=== PATIENT | female | born 1965 | race Caucasian/White ===

== ENCOUNTER 2017-10-07 00:16 | Emergency (ER) | payer MEDICAID ==
--- NOTE | 2017-10-07 00:34 | EDM.PDOC ---
ED HPI GENERAL MEDICAL PROBLEM - General Chief Complaint: Lower Extremity Injury/Pain Stated Complaint: PAIN IN LEGS AND FEET [id number] Time Seen by Provider: 10/07/17 00:30 Source of Information: Reports: Patient, Family - History of Present Illness INITIAL COMMENTS - FREE TEXT/NARRATIVE: ED with c/o lower leg swelling and foot pain this shahriar. Patient hx of liver failure, hospitalized in [facility] and pericentesis done. Has had appointments yesterday and today in [place]. reports more walking and activity than usual. No abdominal pain or difficulty breathing. Has had edema in past, worse tonight.. Rx written today for Lasix bur Rx not filled. Spouse stated that had been on Lasix while in hospital but none on discharge. Lower Leg Pain Score (Numeric/FACES): 0 - Related Data Allergies Allergy/AdvReac Type Severity Reaction Status Date / Time No Known Allergies Allergy Verified 10/07/17 01:29 Home Meds: Home Meds Omeprazole Magnesium [Prilosec Otc] 20 mg PO DAILY 10/07/17 [History] Propranolol HCl [Propranolol] 20 mg PO BID 10/07/17 [History] Spironolactone [Aldactone] 150 mg PO DAILY 10/07/17 [History] buPROPion HCl [Wellbutrin SR] 75 mg PO DAILY 10/07/17 [History] Review of Systems - Review of Systems Review Of Systems: See Below Constitutional: Reports: Fever Eyes: Reports: No Symptoms Ears: Reports: No Symptoms Nose: Reports: No Symptoms Mouth/Throat: Reports: No Symptoms Respiratory: Reports: No Symptoms Cardiovascular: Reports: No Symptoms GI/Abdominal: Reports: No Symptoms Genitourinary: Reports: No Symptoms Musculoskeletal: Reports: Leg Pain, Foot Pain Skin: Reports: Jaundice Neurological: Reports: Confusion (worse when tired) ED EXAM, GENERAL - Physical Exam Exam: See Below Exam Limited By: No Limitations General Appearance: Alert, No Apparent Distress, Obese Eye Exam: Bilateral Eye: EOMI, PERRL (sceral jaundice) Ears: Normal External Exam, Normal Canal, Normal TMs Nose: Normal Inspection Throat/Mouth: Normal Inspection Head: Atraumatic, Normocephalic Neck: Normal Inspection Respiratory/Chest: No Respiratory Distress, Lungs Clear, Normal Breath Sounds Cardiovascular: Normal Peripheral Pulses, Regular Rate, Rhythm, Other (3+edema below knees) Peripheral Pulses: 1+: Dorsalis Pedis (L), Dorsalis Pedis (R) GI/Abdominal: Normal Bowel Sounds, Soft, Non-Tender Rectal (Female) Exam: Other (incontinent lasrge amount green stool) Extremities: Normal Inspection Neurological: Alert, Oriented, Inattentive, Slow to Respond Psychiatric: Flat Affect Skin Exam: Warm, Dry, Jaundice Course - Vital Signs Last Recorded V/S: Last Vital Signs Temp 97.2 F 10/07/17 01:35 Pulse 57 L 10/07/17 01:35 Resp 20 10/07/17 01:35 BP 119/73 10/07/17 01:35 Pulse Ox 100 10/07/17 01:35 - Orders/Labs/Meds Orders: Active Orders 24 hr Category Date Time Status UA W/MICROSCOPIC [URIN] Stat Lab 10/07/17 00:59 Ordered Labs: Laboratory Tests 10/07/17 10/07/17 10/07/17 Range/Units 00:50 00:50 00:50 WBC 6.4 (5.0-10.0) 10^3/uL RBC 3.10 L (4.2-5.4) 10^6/uL Hgb 9.0 L (12.0-16.0) g/dL Hct 26.7 L (37.0-47.0) % MCV 86.1 (80-100) fL MCH 29.0 (27.0-34.0) pg MCHC 33.7 (33.0-35.0) g/dL Plt Count 110 L (150-450) 10^3/uL Neut % (Auto) 60.4 (42.2-75.2) % Lymph % (Auto) 25.8 (20.5-50.1) % [place] % (Auto) 11.3 H (2-8) % Eos % (Auto) 2.0 (1.0-3.0) % Baso % (Auto) 0.5 (0.0-1.0) % Sodium 137 (135-145) mmol/L Potassium 3.6 (3.6-5.0) mmol/L Chloride 108 (101-111) mmol/L Carbon Dioxide 22.0 (21.0-31.0) mmol/L Anion Gap 10.6 BUN 10 (7-18) mg/dL Creatinine 0.7 (0.6-1.3) mg/dL Est Cr Clr Drug Dosing 93.50 mL/min Estimated GFR (MDRD) > 60 BUN/Creatinine Ratio 14.28 Glucose 99 (74-105) mg/dL Calcium 8.6 (8.4-10.2) mg/dl Total Bilirubin 8.3 H (0.2-1.0) mg/dL AST 70 H (10-42) IU/L ALT 33 (10-60) IU/L Alkaline Phosphatase 104 (42-121) IU/L Ammonia 49 H (11-35) umol/L B-Natriuretic Peptide 360 H (0-100) pg/ml Total Protein 7.0 (6.7-8.2) g/dl Albumin 2.6 L (3.2-5.5) g/dl Globulin 4.4 Albumin/Globulin Ratio 0.59 Amylase 37 (28-100) U/L Urine Color (YELLOW) Urine Appearance (CLEAR) Urine pH (5.0-9.0) Ur Specific [place] (1.005-1.030) Urine Protein (NEGATIVE) Urine Glucose (UA) (NEGATIVE) Urine Ketones (NEGATIVE) Urine Occult Blood (NEGATIVE) Urine Nitrite (NEGATIVE) Urine Bilirubin (NEGATIVE) Urine Urobilinogen (0.2-1.0) mg/dL Ur Leukocyte Esterase (NEGATIVE) Urine RBC /HPF Urine WBC (0-5/HPF) /HPF Ur Epithelial Cells /HPF Urine Bacteria (0-FEW/HPF) /HPF Hyaline Casts /LPF Fine Granular Casts (0/LPF) /LPF Urine Mucus /LPF 10/07/17 Range/Units 00:59 WBC (5.0-10.0) 10^3/uL RBC (4.2-5.4) 10^6/uL Hgb (12.0-16.0) g/dL Hct (37.0-47.0) % MCV (80-100) fL MCH (27.0-34.0) pg MCHC (33.0-35.0) g/dL Plt Count (150-450) 10^3/uL Neut % (Auto) (42.2-75.2) % Lymph % (Auto) (20.5-50.1) % [place] % (Auto) (2-8) % Eos % (Auto) (1.0-3.0) % Baso % (Auto) (0.0-1.0) % Sodium (135-145) mmol/L Potassium (3.6-5.0) mmol/L Chloride (101-111) mmol/L Carbon Dioxide (21.0-31.0) mmol/L Anion Gap BUN (7-18) mg/dL Creatinine (0.6-1.3) mg/dL Est Cr Clr Drug Dosing mL/min Estimated GFR (MDRD) BUN/Creatinine Ratio Glucose (74-105) mg/dL Calcium (8.4-10.2) mg/dl Total Bilirubin (0.2-1.0) mg/dL AST (10-42) IU/L ALT (10-60) IU/L Alkaline Phosphatase (42-121) IU/L Ammonia (11-35) umol/L B-Natriuretic Peptide (0-100) pg/ml Total Protein (6.7-8.2) g/dl Albumin (3.2-5.5) g/dl Globulin Albumin/Globulin Ratio Amylase (28-100) U/L Urine Color [place] (YELLOW) Urine Appearance Slightly cloudy (CLEAR) Urine pH 5.5 (5.0-9.0) Ur Specific [place] >= 1.030 (1.005-1.030) Urine Protein 30 H (NEGATIVE) Urine Glucose (UA) Negative (NEGATIVE) Urine Ketones Trace H (NEGATIVE) Urine Occult Blood Negative (NEGATIVE) Urine Nitrite Negative (NEGATIVE) Urine Bilirubin Large H (NEGATIVE) Urine Urobilinogen >=8.0 H (0.2-1.0) mg/dL Ur Leukocyte Esterase Negative (NEGATIVE) Urine RBC 0-5 /HPF Urine WBC 0-5 (0-5/HPF) /HPF Ur Epithelial Cells Moderate H /HPF Urine Bacteria Many H (0-FEW/HPF) /HPF Hyaline Casts Few H /LPF Fine Granular Casts Few H (0/LPF) /LPF Urine Mucus Many H /LPF Meds: Medications Discontinued Medications Generic Name Dose Route Start Last Admin Trade Name Freq PRN Reason Stop Dose Admin Furosemide 40 mg 10/07/17 01:21 10/07/17 01:33 Lasix IVPUSH 10/07/17 01:22 40 mg NOW ONE Administration - Radiology Interpretation Free Text/Narrative:: Head CT: No evidence for acute transcortical infarct, acute intracranial hemorrhage or mass effect CXR Mild pulmonary vascular congestion, no pneumonia - Re-Assessments/Exams Free Text/Narrative Re-Assessment/Exam: 10/07/17 06:28 foot and leg pain resolved with elevation. Recent labs from [facility] received, No significant change . Departure - Departure Time of Disposition: 02:10 Disposition: Home, Self-Care 01 Condition: Fair Clinical Impression: Lower extremity pain, bilateral Edema Qualifiers: Edema type: unspecified Qualified Code(s): R60.9 - Edema, unspecified Chronic liver failure Qualifiers: Hepatic coma status: without hepatic coma Qualified Code(s): K72.10 - Chronic hepatic failure without coma - Discharge Information Instructions: Edema, [id number] Referrals: PCP,Not In Area [Primary Care Provider] - Forms: ED Department Discharge Additional Instructions: Elevate lower extremities Follow up on Thursday to recheck Labs potassium, Bun, creatinine urgent follow up if any difficulty breathing or chest pain - My Orders Last 24 Hours: My Active Orders 10/07/17 00:59 UA W/MICROSCOPIC [URIN] Stat - Assessment/Plan Last 24 Hours: My Active Orders 10/07/17 00:59 UA W/MICROSCOPIC [URIN] Stat
[2017-10-07 01:18] LABS: ANION GAP 10.6; CHLORIDE,CL 108 mmol/L (101-111); SODIUM,NA 137 mmol/L (135-145)
[2017-10-07] MEDS ORDERED: Furosemide 40 MG/4 ML VIAL IVPUSH ONE (01:21)
== END 2017-10-07 02:30 | disposition home or self-care (01) ==
LOC: DL.ED 00:16
DX: K72.10 Chronic hepatic failure without coma (principal); M79.661 Pain in right lower leg; M79.662 Pain in left lower leg; R60.9 Edema, unspecified; Z79.899 Other long term (current) drug therapy
CPT/HCPCS: 36415; 70450; 71045; 80053; 81001; 82140; 82150; 83880; 85025; 96374; 99285; J1940

== ENCOUNTER 2017-10-26 01:32 | Emergency (ER) | payer MEDICAID ==
--- NOTE | 2017-10-26 02:05 | EDM.PDOC ---
ED HPI GENERAL MEDICAL PROBLEM - General Chief Complaint: Flank Pain Stated Complaint: PAIN IN KIDNEY AREA [id number] Time Seen by Provider: 10/26/17 02:02 Source of Information: Reports: Patient, Family History Limitations: Reports: No Limitations - History of Present Illness INITIAL COMMENTS - FREE TEXT/NARRATIVE: onset back pain this AM not going away so came here. no appetite been nauseous with some diarrhoea with some blood did vomit once without blood. been Dx @ [place] with non alcoholic cirrhosis. give h/o PN. Bilateral Flank Pain Score (Numeric/FACES): 9 - Related Data Allergies Allergy/AdvReac Type Severity Reaction Status Date / Time No Known Allergies Allergy Verified 10/26/17 01:48 Home Meds: Home Meds Omeprazole Magnesium [Prilosec Otc] 20 mg PO DAILY 10/07/17 [History] Propranolol HCl [Propranolol] 20 mg PO BID 10/07/17 [History] Spironolactone [Aldactone] 100 mg PO DAILY 10/07/17 [History] buPROPion HCl [Wellbutrin SR] 75 mg PO DAILY 10/07/17 [History] Ergocalciferol (Vitamin D2) [Vitamin D2] 50,000 unit PO ASDIRECTED 10/26/17 [ History] Furosemide 40 mg PO DAILY 10/26/17 [History] Levothyroxine [Synthroid] 50 mcg PO ACBREAKFAST 10/26/17 [History] Ursodiol 500 mg PO TID 10/26/17 [History] Past Medical History Cardiovascular History: Reports: Other (See Below) Other Cardiovascular History: DVT's in her legs. Gastrointestinal History: Reports: Cirrhosis, Jaundice, Other (See Below) Other Gastrointestinal History: PBC [employer] History: Reports: Psychiatric History: Reports: Anxiety, Depression Endocrine/Metabolic History: Reports: Obesity/BMI 30+ Hematologic History: Reports: Anemia, Blood Transfusion(s) Dermatologic History: Reports: Psoriasis - Infectious Disease History Infectious Disease History: Reports: Chicken Pox - Past Surgical History GI Surgical History: Reports: Bariatric Procedure, Cholecystectomy, Colonoscopy , EGD, Other (See Below) Other GI Surgeries/Procedures: Has had gastric bypass Social & Family History - Family History Family Medical History: Noncontributory - Tobacco Use Smoking Status *Q: Never Smoker Second Hand Smoke Exposure: No - Caffeine Use Caffeine Use: Reports: None - Alcohol Use Days Per Week of Alcohol Use: 5 Number of Drinks Per Day: 5 Total Drinks Per Week: 25 - Recreational Drug Use Recreational Drug Use: No ED ROS GENERAL - Review of Systems Review Of Systems: ROS reveals no pertinent complaints other than HPI. ED EXAM, RENAL/ - Physical Exam Exam: See Below Exam Limited By: No Limitations General Appearance: Alert, WD/WN, Mild Distress, Other (discomfort) Ears: Hearing Grossly Normal Throat/Mouth: Normal Voice, No Airway Compromise Head: Atraumatic Neck: Non-Tender, Full Range of Motion Respiratory/Chest: No Respiratory Distress Cardiovascular: Regular Rate, Rhythm GI/Abdominal: Soft, Non-Tender Neurological: Alert, Oriented, Normal Cognition, No Motor/Sensory Deficits Psychiatric: Tearful Skin Exam: Warm, Dry, Normal Color Course - Vital Signs Last Recorded V/S: Last Vital Signs Temp 37.8 C 10/26/17 03:39 Pulse 87 10/26/17 03:39 Resp 18 10/26/17 03:39 BP 103/51 L 10/26/17 03:39 Pulse Ox 93 L 10/26/17 03:39 - Orders/Labs/Meds Labs: Laboratory Tests 10/26/17 10/26/17 10/26/17 Range/Units 02:05 02:05 02:05 WBC 12.7 H (5.0-10.0) 10^3/uL RBC 3.08 L (4.2-5.4) 10^6/uL Hgb 9.3 L (12.0-16.0) g/dL Hct 27.8 L (37.0-47.0) % MCV 90.3 D (80-100) fL MCH 30.2 (27.0-34.0) pg MCHC 33.5 (33.0-35.0) g/dL Plt Count 94 L (150-450) 10^3/uL Neut % (Auto) 79.7 H (42.2-75.2) % Lymph % (Auto) 13.2 L (20.5-50.1) % [place] % (Auto) 6.7 (2-8) % Eos % (Auto) 0.2 L (1.0-3.0) % Baso % (Auto) 0.2 (0.0-1.0) % Sodium 136 (135-145) mmol/L Potassium 3.9 (3.6-5.0) mmol/L Chloride 107 (101-111) mmol/L Carbon Dioxide 24.0 (21.0-31.0) mmol/L Anion Gap 8.9 BUN 6 L (7-18) mg/dL Creatinine 0.7 (0.6-1.3) mg/dL Est Cr Clr Drug Dosing 93.50 mL/min Estimated GFR (MDRD) > 60 BUN/Creatinine Ratio 8.57 Glucose 95 (74-105) mg/dL Lactic Acid 1.6 (0.5-2.2) mmol/L Calcium 8.2 L (8.4-10.2) mg/dl Total Bilirubin 9.6 H (0.2-1.0) mg/dL AST 53 H (10-42) IU/L ALT 29 (10-60) IU/L Alkaline Phosphatase 108 (42-121) IU/L Total Protein 6.5 L (6.7-8.2) g/dl Albumin 2.3 L (3.2-5.5) g/dl Globulin 4.2 Albumin/Globulin Ratio 0.55 Meds: Medications Discontinued Medications Generic Name Dose Route Start Last Admin Trade Name Freq PRN Reason Stop Dose Admin Ceftriaxone Sodium 1 gm 10/26/17 02:50 10/26/17 03:01 Rocephin IVPUSH 10/26/17 02:51 1 gm ONETIME ONE Administration Hydromorphone HCl 0.5 mg 10/26/17 03:30 10/26/17 03:34 Dilaudid IVPUSH 10/26/17 03:31 0.5 mg ONETIME ONE Administration Sodium Chloride 1,000 mls @ 150 mls/hr 10/26/17 02:15 10/26/17 02:13 Normal Saline IV 150 mls/hr ASDIRECTED KWAKU Administration Morphine Sulfate 2 mg 10/26/17 02:06 10/26/17 02:15 Morphine IVPUSH 10/26/17 02:07 2 mg ONETIME ONE Administration Ondansetron HCl 4 mg 10/26/17 02:06 10/26/17 02:13 Zofran IV 10/26/17 02:07 4 mg ONETIME ONE Administration - Re-Assessments/Exams Free Text/Narrative Re-Assessment/Exam: 10/26/17 02:51 results discussed with pt & family. pt feeling much better presently. 10/26/17 03:30 re-exam; pain starting to return, otherwise better than earlier Departure - Departure Time of Disposition: 03:50 Disposition: Home, Self-Care 01 Condition: Fair Clinical Impression: Pyelonephritis, Non-alcoholic cirrhosis - Discharge Information Instructions: Pyelonephritis, Adult, [id number] Referrals: PCP,Unobtain [Primary Care Provider] - Forms: ED Department Discharge Additional Instructions: 1) follow up with family doctor 2) recheck as needed rx given; keflex 250mg qid x 40 vicodin 5/325mg tid prn x 12 zofran 4mg ODT bid prn x 6
[2017-10-26] MEDS ORDERED: Morphine 2 MG/ML Syringe IVPUSH ONE (02:06)
[2017-10-26] MEDS ORDERED: Ondansetron 4 MG/2 ML SDV IV ONE (02:06)
[2017-10-26] MEDS ORDERED: Sodium Chloride 0.9% 1,000 ML IV SCH (02:15)
[2017-10-26 02:34] LABS: CHLORIDE,CL 107 mmol/L (101-111); SODIUM,NA 136 mmol/L (135-145)
[2017-10-26] MEDS ORDERED: cefTRIAXone 1 GM Vial IVPUSH ONE (02:50)
[2017-10-26] MEDS ORDERED: HYDROmorphone 0.5 MG/0.5 ML Syringe IVPUSH ONE (03:30)
== END 2017-10-26 03:50 | disposition home or self-care (01) ==
LOC: DL.ED 01:32
DX: N12 Tubulo-interstitial nephritis, not specified as acute or chronic (principal); K74.60 Unspecified cirrhosis of liver; F41.9 Anxiety disorder, unspecified; F32.9 Major depressive disorder, single episode, unspecified; Z79.899 Other long term (current) drug therapy
CPT/HCPCS: 36415; 80053; 83605; 85025; 87040; 87077; 87186; 96361; 96374; 96375; 99284; J0696; J1170; J2270; J2405; J7030

== ENCOUNTER 2017-12-27 07:24 | Emergency (ER) | payer MEDICAID ==
--- NOTE | 2017-12-27 07:26 | EDM.PDOC ---
ED HPI GENERAL MEDICAL PROBLEM - General Chief Complaint: Gastrointestinal Problem Stated Complaint: [id number] DEHYDRATION Time Seen by Provider: 12/27/17 07:25 Source of Information: Reports: Patient, Old Records, RN, RN Notes Reviewed History Limitations: Reports: No Limitations - History of Present Illness INITIAL COMMENTS - FREE TEXT/NARRATIVE: Pt presents to ER from home by POV with c/o feeling dehydrated. Pt reports that she began feeling nauseated, weak & fatigued with mild generalized abdominal discomfort about a week ago. She called [facility] because she has been seen there and is being evaluated for a liver transplant. The [place] doctor told her to have her [place] doctor check her out, but pt began to feel a little better so she didn't go to the clinic. Now pt reports that she is feeling worse. Pt and her have noticed that the pt has had more confusion recently. Pt states her lower extremity edema has improved a little, but she is much more jaundiced, and her urine is very dark. She admits to increasing abdominal girth similar to when she had to have paracentesis. She denies abdominal pain, vomiting, dark/black/melena stools, fevers, chills, CP, orthopnea, or cough. 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: Other Medication(s) - Related Data Allergies Allergy/AdvReac Type Severity Reaction Status Date / Time No Known Allergies Allergy Verified 10/26/17 01:48 Home Meds: Home Meds Omeprazole Magnesium [Prilosec Otc] 20 mg PO DAILY 10/07/17 [History] Propranolol HCl [Propranolol] 20 mg PO BID 10/07/17 [History] Spironolactone [Aldactone] 150 mg PO DAILY 10/07/17 [History] buPROPion HCl [Wellbutrin SR] 75 mg PO DAILY 10/07/17 [History] Ergocalciferol (Vitamin D2) [Vitamin D2] 50,000 unit PO ASDIRECTED 10/26/17 [ History] Furosemide 60 mg PO DAILY 10/26/17 [History] Levothyroxine [Synthroid] 50 mcg PO ACBREAKFAST 10/26/17 [History] Ursodiol 500 mg PO TID 10/26/17 [History] Lactulose 30 mg PO 12/27/17 [History] Multivitamin [Multi-Vitamin Daily] 2 tab PO DAILY 12/27/17 [History] Past Medical History HEENT History: Reports: Impaired Vision (glasses) Cardiovascular History: Reports: Heart Murmur, Other (See Below) Other Cardiovascular History: DVT's in her legs. Gastrointestinal History: Reports: Cholelithiasis, Cirrhosis ([facility], Dr. 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: Psychiatric History: Reports: Anxiety, Depression Endocrine/Metabolic History: Reports: Diabetes, Type II (borderline), Hypothyroidism, Obesity/BMI 30+ Hematologic History: Reports: Anemia, Blood Transfusion(s) Dermatologic History: Reports: Psoriasis - Infectious Disease History Infectious Disease History: Reports: Chicken Pox - Past Surgical History GI Surgical History: Reports: Bariatric Procedure, Cholecystectomy, Colonoscopy , EGD, Other (See Below) (paracentesis) Other GI Surgeries/Procedures: Has had gastric bypass Social & Family History - Family History Family Medical History: Noncontributory Endocrine/Metabolic: Reports: Diabetes, type II (parents) Oncologic: Reports: Lung (grandparents) - Tobacco Use Smoking Status *Q: Never Smoker - Caffeine Use Caffeine Use: Reports: None - Alcohol Use Alcohol Use History: Yes Date of Last Drink: 09/20/17 (abstained due to liver disease) Alcohol Use in Last Twelve Months: Yes Alcohol Use Frequency: Not Used in Over 4 Months - Recreational Drug Use Recreational Drug Use: No - Living Situation & Occupation Living situation: Reports: Occupation: Other (house ) ED ROS GENERAL - Review of Systems Review Of Systems: ROS reveals no pertinent complaints other than HPI. ED EXAM, GENERAL - Physical Exam Exam: See Below Exam Limited By: No Limitations General Appearance: Alert, No Apparent Distress, Obese, Other (chronically ill, jaundiced, but non-toxic appearing) Eye Exam: Bilateral Eye: EOMI, PERRL, Other (scleral icterus) Ears: Normal External Exam, Hearing Grossly Normal Nose: Normal Inspection, Normal Mucosa, No Blood Throat/Mouth: Normal Lips, Normal Oropharynx, Normal Voice, No Airway Compromise , Other (very dry oral membranes, extensive dental decay) Head: Atraumatic, Normocephalic Neck: Normal Inspection, Supple, Non-Tender, Full Range of Motion. No: Lymphadenopathy (L), Lymphadenopathy (R) Respiratory/Chest: No Respiratory Distress, Lungs Clear, Chest Non-Tender, Decreased Breath Sounds Cardiovascular: Regular Rate, Rhythm, Systolic Murmur (2/6 ABRAHAM), Other (+2 edema to knees at B/L lower extremities) GI/Abdominal: Normal Bowel Sounds, Soft, Non-Tender, No Distention, No Abnormal Bruit, Other (abd. fluid wave consistent with ascites). No: Guarding, Rigid, Rebound (Female) Exam: Deferred Back Exam: Normal Inspection Extremities: Normal Range of Motion, Non-Tender, Pedal Edema. No: Joint Swelling, Hubert's Sign, Increased Warmth, Mottled, Pallor, Redness Neurological: Alert, Oriented, CN II-XII Intact, Normal Cognition, No Motor/ Sensory Deficits Psychiatric: Normal Affect, Normal Mood Skin Exam: Warm, Dry, Intact, No Rash, Jaundice Course - Vital Signs Last Recorded V/S: Last Vital Signs Temp 36.4 C 12/27/17 07:55 Pulse 82 12/27/17 07:55 Resp 16 12/27/17 07:55 BP 106/49 L 12/27/17 07:55 Pulse Ox 95 12/27/17 07:55 - Orders/Labs/Meds Orders: Active Orders 24 hr Category Date Time Status Peripheral IV Care [RC] . DIRECTED Care 12/27/17 07:42 Active Sodium Chloride 0.9% [Normal Saline] 1,000 ml Med 12/27/17 07:45 Active IV ASDIRECTED Sodium Chloride 0.9% [Saline Flush] Med 12/27/17 07:41 Active 10 ml FLUSH ASDIRECTED PRN Peripheral IV Insertion Adult [OM.PC] Stat Oth 12/27/17 07:41 Ordered Medication Orders Sodium Chloride (Normal Saline) 1,000 mls @ 50 mls/hr IV ASDIRECTED KWAKU Stop: 12/31/17 07:43 Last Admin: 12/27/17 07:45 Dose: 50 mls/hr Sodium Chloride (Saline Flush) 10 ml FLUSH ASDIRECTED PRN PRN Reason: Keep Vein Open Labs: Laboratory Tests 12/27/17 12/27/17 12/27/17 Range/Units 07:50 07:50 07:50 WBC 5.6 (5.0-10.0) 10^3/uL RBC 2.23 L (4.2-5.4) 10^6/uL Hgb 7.6 L D (12.0-16.0) g/dL Hct 23.9 L (37.0-47.0) % MCV 107.2 H D (80-100) fL MCH 34.1 H (27.0-34.0) pg MCHC 31.8 L (33.0-35.0) g/dL Plt Count 110 L (150-450) 10^3/uL Neut % (Auto) 54.6 (42.2-75.2) % Lymph % (Auto) 26.3 (20.5-50.1) % Reynolds % (Auto) 16.7 H (2-8) % Eos % (Auto) 2.0 (1.0-3.0) % Baso % (Auto) 0.4 (0.0-1.0) % PT 18.6 H (9.0-12.0) SEC INR 1.9 H (0.9-1.2) APTT 29.1 (22.0-34.0) SEC Sodium 135 (135-145) mmol/L Potassium 3.7 (3.6-5.0) mmol/L Chloride 102 (101-111) mmol/L Carbon Dioxide 25.0 (21.0-31.0) mmol/L Anion Gap 11.7 BUN 13 (7-18) mg/dL Creatinine 1.2 (0.6-1.3) mg/dL Est Cr Clr Drug Dosing 54.54 mL/min Estimated GFR (MDRD) 48 BUN/Creatinine Ratio 10.83 Glucose 98 (74-105) mg/dL Lactic Acid (0.5-2.2) mmol/L Calcium 8.7 (8.4-10.2) mg/dl Magnesium 1.8 (1.8-2.5) mg/dL Total Bilirubin 13.6 H (0.2-1.0) mg/dL AST 45 H (10-42) IU/L ALT 24 (10-60) IU/L Alkaline Phosphatase 105 (42-121) IU/L Ammonia (11-35) umol/L B-Natriuretic Peptide 314 H (0-100) pg/ml Total Protein 6.1 L (6.7-8.2) g/dl Albumin 2.1 L (3.2-5.5) g/dl Globulin 4.0 Albumin/Globulin Ratio 0.53 Amylase 49 (28-100) U/L Lipase 50 (22-51) U/L TSH, Ultra Sensitive (0.45-5.33) uIu/mL Urine Color (YELLOW) Urine Appearance (CLEAR) Urine pH (5.0-9.0) Ur Specific [place] (1.005-1.030) Urine Protein (NEGATIVE) Urine Glucose (UA) (NEGATIVE) Urine Ketones (NEGATIVE) Urine Occult Blood (NEGATIVE) Urine Nitrite (NEGATIVE) Urine Bilirubin (NEGATIVE) Urine Urobilinogen (0.2-1.0) mg/dL Ur Leukocyte Esterase (NEGATIVE) Urine RBC /HPF Urine WBC (0-5/HPF) /HPF Ur Epithelial Cells /HPF Urine Bacteria (0-FEW/HPF) /HPF Urine Mucus /LPF 12/27/17 12/27/17 12/27/17 Range/Units 07:50 07:50 07:50 WBC (5.0-10.0) 10^3/uL RBC (4.2-5.4) 10^6/uL Hgb (12.0-16.0) g/dL Hct (37.0-47.0) % MCV (80-100) fL MCH (27.0-34.0) pg MCHC (33.0-35.0) g/dL Plt Count (150-450) 10^3/uL Neut % (Auto) (42.2-75.2) % Lymph % (Auto) (20.5-50.1) % Reynolds % (Auto) (2-8) % Eos % (Auto) (1.0-3.0) % Baso % (Auto) (0.0-1.0) % PT (9.0-12.0) SEC INR (0.9-1.2) APTT (22.0-34.0) SEC Sodium (135-145) mmol/L Potassium (3.6-5.0) mmol/L Chloride (101-111) mmol/L Carbon Dioxide (21.0-31.0) mmol/L Anion Gap BUN (7-18) mg/dL Creatinine (0.6-1.3) mg/dL Est Cr Clr Drug Dosing mL/min Estimated GFR (MDRD) BUN/Creatinine Ratio Glucose (74-105) mg/dL Lactic Acid 1.8 (0.5-2.2) mmol/L Calcium (8.4-10.2) mg/dl Magnesium (1.8-2.5) mg/dL Total Bilirubin (0.2-1.0) mg/dL AST (10-42) IU/L ALT (10-60) IU/L Alkaline Phosphatase (42-121) IU/L Ammonia 140 H (11-35) umol/L B-Natriuretic Peptide (0-100) pg/ml Total Protein (6.7-8.2) g/dl Albumin (3.2-5.5) g/dl Globulin Albumin/Globulin Ratio Amylase (28-100) U/L Lipase (22-51) U/L TSH, Ultra Sensitive 12.52 H (0.45-5.33) uIu/mL Urine Color (YELLOW) Urine Appearance (CLEAR) Urine pH (5.0-9.0) Ur Specific [place] (1.005-1.030) Urine Protein (NEGATIVE) Urine Glucose (UA) (NEGATIVE) Urine Ketones (NEGATIVE) Urine Occult Blood (NEGATIVE) Urine Nitrite (NEGATIVE) Urine Bilirubin (NEGATIVE) Urine Urobilinogen (0.2-1.0) mg/dL Ur Leukocyte Esterase (NEGATIVE) Urine RBC /HPF Urine WBC (0-5/HPF) /HPF Ur Epithelial Cells /HPF Urine Bacteria (0-FEW/HPF) /HPF Urine Mucus /LPF 12/27/17 Range/Units 08:31 WBC (5.0-10.0) 10^3/uL RBC (4.2-5.4) 10^6/uL Hgb (12.0-16.0) g/dL Hct (37.0-47.0) % MCV (80-100) fL MCH (27.0-34.0) pg MCHC (33.0-35.0) g/dL Plt Count (150-450) 10^3/uL Neut % (Auto) (42.2-75.2) % Lymph % (Auto) (20.5-50.1) % Reynolds % (Auto) (2-8) % Eos % (Auto) (1.0-3.0) % Baso % (Auto) (0.0-1.0) % PT (9.0-12.0) SEC INR (0.9-1.2) APTT (22.0-34.0) SEC Sodium (135-145) mmol/L Potassium (3.6-5.0) mmol/L Chloride (101-111) mmol/L Carbon Dioxide (21.0-31.0) mmol/L Anion Gap BUN (7-18) mg/dL Creatinine (0.6-1.3) mg/dL Est Cr Clr Drug Dosing mL/min Estimated GFR (MDRD) BUN/Creatinine Ratio Glucose (74-105) mg/dL Lactic Acid (0.5-2.2) mmol/L Calcium (8.4-10.2) mg/dl Magnesium (1.8-2.5) mg/dL Total Bilirubin (0.2-1.0) mg/dL AST (10-42) IU/L ALT (10-60) IU/L Alkaline Phosphatase (42-121) IU/L Ammonia (11-35) umol/L B-Natriuretic Peptide (0-100) pg/ml Total Protein (6.7-8.2) g/dl Albumin (3.2-5.5) g/dl Globulin Albumin/Globulin Ratio Amylase (28-100) U/L Lipase (22-51) U/L TSH, Ultra Sensitive (0.45-5.33) uIu/mL Urine Color Dark yellow (YELLOW) Urine Appearance Slightly cloudy (CLEAR) Urine pH 6.0 (5.0-9.0) Ur Specific [place] 1.020 (1.005-1.030) Urine Protein Negative (NEGATIVE) Urine Glucose (UA) 100 H (NEGATIVE) Urine Ketones Negative (NEGATIVE) Urine Occult Blood Negative (NEGATIVE) Urine Nitrite Negative (NEGATIVE) Urine Bilirubin Large H (NEGATIVE) Urine Urobilinogen >=8.0 H (0.2-1.0) mg/dL Ur Leukocyte Esterase Negative (NEGATIVE) Urine RBC 0-5 /HPF Urine WBC 0-5 (0-5/HPF) /HPF Ur Epithelial Cells Few /HPF Urine Bacteria Many H (0-FEW/HPF) /HPF Urine Mucus Few H /LPF Heme Positive Stool. Meds: Medications Generic Name Dose Route Start Last Admin Trade Name Freq PRN Reason Stop Dose Admin Sodium Chloride 1,000 mls @ 50 mls/hr 12/27/17 07:45 12/27/17 07:45 Normal Saline IV 12/31/17 07:43 50 mls/hr ASDIRECTED KWAKU Administration Sodium Chloride 10 ml 12/27/17 07:41 Saline Flush FLUSH ASDIRECTED PRN Keep Vein Open Discontinued Medications Generic Name Dose Route Start Last Admin Trade Name Freq PRN Reason Stop Dose Admin Lactulose 20 gm 12/27/17 08:19 12/27/17 08:38 Cephulac PO 12/27/17 08:20 20 gm ONETIME ONE Administration Ondansetron HCl 4 mg 12/27/17 08:16 12/27/17 08:39 Zofran IV 12/27/17 08:17 4 mg ONETIME ONE Administration Departure - Departure Time of Disposition: 08:47 Disposition: DC/Tfer to [facility] 02 Condition: Serious Clinical Impression: End stage liver disease, Ascites due to alcoholic cirrhosis, Hepatic encephalopathy, Heme positive stool Anemia Qualifiers: Anemia type: unspecified type Qualified Code(s): D64.9 - Anemia, unspecified Hypothyroidism Qualifiers: Hypothyroidism type: unspecified Qualified Code(s): E03.9 - Hypothyroidism, unspecified - Discharge Information Forms: ED Department Discharge, Interfacility Transfer EMTALA - My Orders Last 24 Hours: My Active Orders 12/27/17 07:41 Sodium Chloride 0.9% [Saline Flush] 10 ml FLUSH ASDIRECTED PRN Peripheral IV Insertion Adult [OM.PC] Stat 12/27/17 07:42 Peripheral IV Care [RC] . DIRECTED 12/27/17 07:45 Sodium Chloride 0.9% [Normal Saline] 1,000 ml IV ASDIRECTED - Assessment/Plan Last 24 Hours: My Active Orders 12/27/17 07:41 Sodium Chloride 0.9% [Saline Flush] 10 ml FLUSH ASDIRECTED PRN Peripheral IV Insertion Adult [OM.PC] Stat 12/27/17 07:42 Peripheral IV Care [RC] . DIRECTED 12/27/17 07:45 Sodium Chloride 0.9% [Normal Saline] 1,000 ml IV ASDIRECTED
[2017-12-27] MEDS ORDERED: Sodium Chloride 0.9% 10 ML Syringe FLUSH PRN (07:41)
[2017-12-27] MEDS ORDERED: Sodium Chloride 0.9% 1,000 ML IV SCH (07:45)
[2017-12-27] MEDS ORDERED: Ondansetron 4 MG/2 ML SDV IV ONE (08:16)
[2017-12-27] MEDS ORDERED: Lactulose Soln 10 GM/15 ML 30 ML UD Cup PO ONE (08:19)
[2017-12-27 08:20] LABS: ANION GAP 11.7
== END 2017-12-27 10:08 ==
LOC: DL.ED 07:24
DX: K72.90 Hepatic failure, unspecified without coma (principal); K70.31 Alcoholic cirrhosis of liver with ascites; E11.9 Type 2 diabetes mellitus without complications; D64.9 Anemia, unspecified; E03.9 Hypothyroidism, unspecified; Z79.899 Other long term (current) drug therapy
CPT/HCPCS: 36415; 80053; 81001; 82140; 82150; 82272; 83605; 83690; 83735; 83880; 84443; 85025; 85610; 85730; 87086; 87088; 87186; 96361; 96374; 99285; A9270; J2405; J7030; J7050

== ENCOUNTER 2018-01-01 01:24 | Emergency (ER) | payer MEDICAID ==
[2018-01-01 02:06] LABS: ANION GAP 11.6
--- NOTE | 2018-01-01 02:22 | EDM.PDOC ---
ED HPI GENERAL MEDICAL PROBLEM - General Chief Complaint: General Stated Complaint: STATES "SOMETHING IS WRONG" Time Seen by Provider: 01/01/18 01:30 Source of Information: Reports: Patient, Family History Limitations: Reports: No Limitations (Patient mentation slow, spouse well informed on medications and medical hx. ) - History of Present Illness INITIAL COMMENTS - FREE TEXT/NARRATIVE: ED with spouse. Patient reports not feeling right, Weaker this evening. Recent hospitalization in for elevated ammonia level and anemia. Received 2 units blood, Home on Thursday. Spouse states has been taking lactulose as ordered with exception of missing one dose this afternoon. No fever or chills appetite decreased. Stated has not drank much for fluids today, Swelling in lower legs and feet seems worse today than usual. Patient in process of workup with [facility] for liver Transplant. Spouse reports Meld score of 26 and Stage IV disease. Only medication change per spouse was addition of xifaxan. Just received from pharmacy this afternoon. - Related Data Allergies Allergy/AdvReac Type Severity Reaction Status Date / Time No Known Allergies Allergy Verified 01/01/18 01:30 Home Meds: Home Meds Omeprazole Magnesium [Prilosec Otc] 20 mg PO DAILY 10/07/17 [History] Propranolol HCl [Propranolol] 20 mg PO BID 10/07/17 [History] Spironolactone [Aldactone] 150 mg PO DAILY 10/07/17 [History] buPROPion HCl [Wellbutrin SR] 75 mg PO DAILY 10/07/17 [History] Ergocalciferol (Vitamin D2) [Vitamin D2] 50,000 unit PO ASDIRECTED 10/26/17 [ History] Furosemide 40 mg PO DAILY 10/26/17 [History] Levothyroxine [Synthroid] 50 mcg PO ACBREAKFAST 10/26/17 [History] Ursodiol 500 mg PO TID 10/26/17 [History] Lactulose 30 mg PO ASDIRECTED 12/27/17 [History] Multivitamin [Multi-Vitamin Daily] 2 tab PO DAILY 12/27/17 [History] Past Medical History HEENT History: Reports: Impaired Vision Cardiovascular History: Reports: Heart Murmur, Other (See Below) Other Cardiovascular History: DVT's in her legs. 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: Psychiatric History: Reports: Anxiety, Depression Endocrine/Metabolic History: Reports: Diabetes, Type II, Hypothyroidism, Obesity /BMI 30+ Hematologic History: Reports: Anemia, Blood Transfusion(s) Dermatologic History: Reports: Psoriasis - Infectious Disease History Infectious Disease History: Reports: Chicken Pox - Past Surgical History GI Surgical History: Reports: Bariatric Procedure, Cholecystectomy, Colonoscopy , EGD, Other (See Below) Other GI Surgeries/Procedures: Has had gastric bypass Social & Family History - Family History Family Medical History: Noncontributory Endocrine/Metabolic: Reports: Diabetes, type II Oncologic: Reports: Lung - Tobacco Use Smoking Status *Q: Never Smoker Second Hand Smoke Exposure: No - Caffeine Use Caffeine Use: Reports: None - Recreational Drug Use Recreational Drug Use: No - Living Situation & Occupation Living situation: Reports: Occupation: Other (house ) ED ROS GENERAL - Review of Systems Review Of Systems: ROS reveals no pertinent complaints other than HPI. ED EXAM, GENERAL - Physical Exam Exam: See Below Exam Limited By: No Limitations General Appearance: Alert, No Apparent Distress Eye Exam: Bilateral Eye: EOMI, Other (sceral icterus) Ears: Normal External Exam, Normal TMs Nose: Normal Inspection Throat/Mouth: Other (mucus membranes tacky) Head: Atraumatic, Normocephalic Neck: Normal Inspection Respiratory/Chest: No Respiratory Distress, Lungs Clear Cardiovascular: Normal Peripheral Pulses, Regular Rate, Rhythm GI/Abdominal: Distended, Hepatomegaly, Other (bowel sounds present thorughout, distant). No: Guarding, Rigid, Tender Back Exam: Normal Inspection Extremities: Pedal Edema (3+ to knees) Neurological: Other (lethargic, responses slow) Psychiatric: Flat Affect Skin Exam: Warm, Dry, Jaundice, Rash (red ginette type rash below left breast) Course - Vital Signs Last Recorded V/S: Last Vital Signs Temp 97.9 F 01/01/18 01:27 Pulse 66 01/01/18 01:27 Resp 18 01/01/18 01:27 BP 101/51 L 01/01/18 01:27 Pulse Ox 92 L 01/01/18 01:27 - Orders/Labs/Meds Orders: Active Orders 24 hr Category Date Time Status UA W/MICROSCOPIC [URIN] Stat Lab 01/01/18 01:54 Ordered Labs: Laboratory Tests 01/01/18 01/01/18 01/01/18 Range/Units 01:45 01:45 01:45 WBC 5.9 (5.0-10.0) 10^3/uL RBC 2.46 L (4.2-5.4) 10^6/uL Hgb 8.3 L (12.0-16.0) g/dL Hct 25.1 L (37.0-47.0) % MCV 102.0 H D (80-100) fL MCH 33.7 (27.0-34.0) pg MCHC 33.1 (33.0-35.0) g/dL Plt Count 110 L (150-450) 10^3/uL Neut % (Auto) 46.8 (42.2-75.2) % Lymph % (Auto) 33.7 (20.5-50.1) % Porter % (Auto) 17.3 H (2-8) % Eos % (Auto) 1.9 (1.0-3.0) % Baso % (Auto) 0.3 (0.0-1.0) % Add Manual Diff Yes Neutrophils % (Manual) 47 (42-75) % Band Neutrophils % 7 % Lymphocytes % (Manual) 38 (20-50) % Atypical Lymphs % 0 % Monocytes % (Manual) 6 (2-8) % Eosinophils % (Manual) 2 (1-3) % Basophils % (Manual) 0 Hypochromasia 2+ moderate Poikilocytosis 2+ moderate Anisocytosis 2+ moderate PT (9.0-12.0) SEC INR (0.9-1.2) Sodium 133 L (135-145) mmol/L Potassium 3.6 (3.6-5.0) mmol/L Chloride 101 (101-111) mmol/L Carbon Dioxide 24.0 (21.0-31.0) mmol/L Anion Gap 11.6 BUN 19 H (7-18) mg/dL Creatinine 1.2 (0.6-1.3) mg/dL Est Cr Clr Drug Dosing 54.54 mL/min Estimated GFR (MDRD) 48 BUN/Creatinine Ratio 15.83 Glucose 99 (74-105) mg/dL Lactic Acid (0.5-2.2) mmol/L Calcium 8.7 (8.4-10.2) mg/dl Total Bilirubin 16.0 H (0.2-1.0) mg/dL AST 43 H (10-42) IU/L ALT 26 (10-60) IU/L Alkaline Phosphatase 96 (42-121) IU/L Ammonia 258 H (11-35) umol/L B-Natriuretic Peptide (0-100) pg/ml Total Protein 6.0 L (6.7-8.2) g/dl Albumin 2.0 L (3.2-5.5) g/dl Globulin 4.0 Albumin/Globulin Ratio 0.50 Amylase (28-100) U/L TSH, Ultra Sensitive (0.45-5.33) uIu/mL Ethyl Alcohol mg/dL 01/01/18 01/01/18 01/01/18 Range/Units 01:45 01:45 01:45 WBC (5.0-10.0) 10^3/uL RBC (4.2-5.4) 10^6/uL Hgb (12.0-16.0) g/dL Hct (37.0-47.0) % MCV (80-100) fL MCH (27.0-34.0) pg MCHC (33.0-35.0) g/dL Plt Count (150-450) 10^3/uL Neut % (Auto) (42.2-75.2) % Lymph % (Auto) (20.5-50.1) % Porter % (Auto) (2-8) % Eos % (Auto) (1.0-3.0) % Baso % (Auto) (0.0-1.0) % Add Manual Diff Neutrophils % (Manual) (42-75) % Band Neutrophils % % Lymphocytes % (Manual) (20-50) % Atypical Lymphs % % Monocytes % (Manual) (2-8) % Eosinophils % (Manual) (1-3) % Basophils % (Manual) Hypochromasia Poikilocytosis Anisocytosis PT (9.0-12.0) SEC INR (0.9-1.2) Sodium (135-145) mmol/L Potassium (3.6-5.0) mmol/L Chloride (101-111) mmol/L Carbon Dioxide (21.0-31.0) mmol/L Anion Gap BUN (7-18) mg/dL Creatinine (0.6-1.3) mg/dL Est Cr Clr Drug Dosing mL/min Estimated GFR (MDRD) BUN/Creatinine Ratio Glucose (74-105) mg/dL Lactic Acid 1.8 (0.5-2.2) mmol/L Calcium (8.4-10.2) mg/dl Total Bilirubin (0.2-1.0) mg/dL AST (10-42) IU/L ALT (10-60) IU/L Alkaline Phosphatase (42-121) IU/L Ammonia (11-35) umol/L B-Natriuretic Peptide 311 H (0-100) pg/ml Total Protein (6.7-8.2) g/dl Albumin (3.2-5.5) g/dl Globulin Albumin/Globulin Ratio Amylase 34 (28-100) U/L TSH, Ultra Sensitive (0.45-5.33) uIu/mL Ethyl Alcohol < 5 mg/dL 01/01/18 01/01/18 Range/Units 01:45 02:50 WBC (5.0-10.0) 10^3/uL RBC (4.2-5.4) 10^6/uL Hgb (12.0-16.0) g/dL Hct (37.0-47.0) % MCV (80-100) fL MCH (27.0-34.0) pg MCHC (33.0-35.0) g/dL Plt Count (150-450) 10^3/uL Neut % (Auto) (42.2-75.2) % Lymph % (Auto) (20.5-50.1) % Porter % (Auto) (2-8) % Eos % (Auto) (1.0-3.0) % Baso % (Auto) (0.0-1.0) % Add Manual Diff Neutrophils % (Manual) (42-75) % Band Neutrophils % % Lymphocytes % (Manual) (20-50) % Atypical Lymphs % % Monocytes % (Manual) (2-8) % Eosinophils % (Manual) (1-3) % Basophils % (Manual) Hypochromasia Poikilocytosis Anisocytosis PT 16.7 H (9.0-12.0) SEC INR 1.7 H (0.9-1.2) Sodium (135-145) mmol/L Potassium (3.6-5.0) mmol/L Chloride (101-111) mmol/L Carbon Dioxide (21.0-31.0) mmol/L Anion Gap BUN (7-18) mg/dL Creatinine (0.6-1.3) mg/dL Est Cr Clr Drug Dosing mL/min Estimated GFR (MDRD) BUN/Creatinine Ratio Glucose (74-105) mg/dL Lactic Acid (0.5-2.2) mmol/L Calcium (8.4-10.2) mg/dl Total Bilirubin (0.2-1.0) mg/dL AST (10-42) IU/L ALT (10-60) IU/L Alkaline Phosphatase (42-121) IU/L Ammonia (11-35) umol/L B-Natriuretic Peptide (0-100) pg/ml Total Protein (6.7-8.2) g/dl Albumin (3.2-5.5) g/dl Globulin Albumin/Globulin Ratio Amylase (28-100) U/L TSH, Ultra Sensitive 5.73 H (0.45-5.33) uIu/mL Ethyl Alcohol mg/dL Meds: Medications Discontinued Medications Generic Name Dose Route Start Last Admin Trade Name Freq PRN Reason Stop Dose Admin Lactulose 20 gm 01/01/18 02:43 01/01/18 02:51 Cephulac PO 01/01/18 02:44 20 gm ONETIME ONE Administration - Re-Assessments/Exams Free Text/Narrative Re-Assessment/Exam: 01/01/18 03:44 Tc Matti HEARD recommending higher level of care needed for this patient. Dr Munguia accepting Tzx via [facility] Departure - Departure Time of Disposition: 04:09 Disposition: DC/Tfer to [facility] Hospital 02 Condition: Fair Clinical Impression: Hepatic encephalopathy, End stage liver disease, Peripheral edema, Ginette infection of flexural skin Anemia Qualifiers: Anemia type: unspecified type Qualified Code(s): D64.9 - Anemia, unspecified Hypothyroidism Qualifiers: Hypothyroidism type: unspecified Qualified Code(s): E03.9 - Hypothyroidism, unspecified - Discharge Information Forms: ED Department Discharge - My Orders Last 24 Hours: My Active Orders 01/01/18 01:54 UA W/MICROSCOPIC [URIN] Stat - Assessment/Plan Last 24 Hours: My Active Orders 01/01/18 01:54 UA W/MICROSCOPIC [URIN] Stat
[2018-01-01] MEDS ORDERED: Lactulose Soln 10 GM/15 ML 30 ML UD Cup PO ONE (02:43)
== END 2018-01-01 04:12 ==
LOC: DL.ED 01:24
DX: K72.90 Hepatic failure, unspecified without coma (principal); D64.9 Anemia, unspecified; E03.9 Hypothyroidism, unspecified; B37.2 Candidiasis of skin and nail; E11.9 Type 2 diabetes mellitus without complications; Z79.899 Other long term (current) drug therapy
CPT/HCPCS: 36415; 80053; 82140; 82150; 83605; 83880; 84443; 85025; 85610; 99285; A9270; G0480